=== PATIENT | male | born 1970 ===

== ENCOUNTER 2018-07-01 11:58 | Inpatient (IN) | payer SELFPAY ==
--- NOTE | 2018-07-01 12:28 | ED PDOC ---
HPI: Psych/Substance Abuse Time Seen by Provider: 07/01/18 12:25 Chief Complaint (Nursing): Psychiatric Evaluation Chief Complaint (Provider): crisis eval History Per: Patient, Family Additional Complaint(s): 47-year-old male presents for crisis evaluation. Patient has history of depression and presents today feeling suicidal. He will not verbalize any plan. He states that he has attempted suicide twice in the past. Patient admits to occasional alcohol use and use of marijuana but denies any use of any other drugs. He states he is compliant with his psychiatric meds but they are not helping him. PMD: none Past Medical History Reviewed: Historical Data, Nursing Documentation, Vital Signs Vital Signs: Last Vital Signs Temp 98 F 07/01/18 12:12 Pulse 88 07/01/18 12:12 Resp 18 07/01/18 12:12 BP 120/74 07/01/18 12:12 Pulse Ox 99 07/01/18 12:12 - Medical History PMH: Depression - Surgical History Other surgeries: neck surgery - Family History Family History: States: No Known Family Hx - Living Arrangements Living Arrangements: With Family - Social History Current smoker - smoking cessation education provided: Yes Alcohol: Social Drugs: Cannabis - Allergies Allergies/Adverse Reactions: Allergies Allergy/AdvReac Type Severity Reaction Status Date / Time No Known Allergies Allergy Verified 07/01/18 12:11 Review of Systems ROS Statement: Except As Marked, All Systems Reviewed And Found Negative Psych: Positive for: Depression, Suicidal ideation Physical Exam - Reviewed Nursing Documentation Reviewed: Yes Vital Signs Reviewed: Yes - Physical Exam Appears: Positive for: Well, Non-toxic, No Acute Distress Skin: Positive for: Normal Color. Negative for: Rash Eye Exam: Positive for: Normal appearance Cardiovascular/Chest: Positive for: Regular Rate, Rhythm Respiratory: Positive for: Normal Breath Sounds. Negative for: Respiratory Distress Extremity: Positive for: Normal ROM Neurologic/Psych: Positive for: Alert, Oriented, Mood/Affect (flat) - Laboratory Results Result Diagrams: 07/01/18 12:50 07/01/18 12:50 - ECG Interpretation Of ECG: NSR 68 bpm, no acute findings, reviewed by PA and ED attending O2 Sat by Pulse Oximetry: 99 Pulse Ox Interpretation: Normal - Other Rad CXR X-Ray: Interpreted by Me, Viewed By Me X-Ray Interpretation: no acute finding Medical Decision Making Medical Decision Makin47 y/o male here for crisis eval Plan: 1:1 Crisis eval CBC CMP [place] level UA UDS BAL EKG CXR Patient was not able to provide urine but he consented for straight cath for urine. As per crisis counselor and psychiatrist manager combination, Dr. Patton, patient does meet criteria for admission. He agrees and signed himself in. Patient is medically and psychiatrically stable for psychiatric admission. Disposition - Clinical Impression Clinical Impression: Bipolar disorder - Patient ED Disposition Is Patient to be Admitted: No - Disposition Disposition Time: 18:38 Condition: FAIR Forms: [employer] ([place]) - Pt Status Changed To: Hospital Disposition Of: Inpatient - Admit Certification Admit to Inpatient:: After my assessment, the patient will require hospitalization for at least two midnights. This is because of the severity of symptoms shown, intensity of services needed, and/or the medical risk in this patient being treated as an outpatient. - POA Present On Arrival: None Results - Lab Results Lab Results: 07/01/18 07/01/18 07/01/18 18:34 18:34 12:50 WBC RBC Hgb Hct MCV MCH MCHC RDW Plt Count MPV Neut % (Auto) Lymph % (Auto) [place] % (Auto) Eos % (Auto) Baso % (Auto) Neut # (Auto) Lymph # (Auto) [place] # (Auto) Eos # (Auto) Baso # (Auto) Sodium Potassium Chloride Carbon Dioxide Anion Gap BUN Creatinine Est GFR ( Amer) Est GFR (Non-Af Amer) Random Glucose Calcium Total Bilirubin AST ALT Alkaline Phosphatase Total Protein Albumin Globulin Albumin/Globulin Ratio Urine Color Yellow Urine Clarity Clear Urine pH 6.0 Ur Specific [place] 1.011 Urine Protein Negative Urine Glucose (UA) Neg Urine Ketones Negative Urine Blood Moderate Urine Nitrate Negative Urine Bilirubin Negative Urine Urobilinogen 0.2-1.0 Ur Leukocyte Esterase Neg Urine RBC (Auto) 7 H Urine Microscopic WBC 1 Hyaline Casts 0-2 Urine Opiates Screen Negative Urine Methadone Screen Negative Ur Barbiturates Screen Negative Ur Phencyclidine Scrn Negative Ur Amphetamines Screen Negative U Benzodiazepines Scrn Positive [place] < 0.2 L U Oth Cocaine Metabols Positive H U Cannabinoids Screen Positive H Alcohol, Quantitative 07/01/18 07/01/18 12:50 12:50 WBC 7.1 RBC 4.54 Hgb 14.9 Hct 43.1 MCV 95.1 H MCH 32.9 H MCHC 34.6 RDW 13.0 Plt Count 179 MPV 7.7 Neut % (Auto) 69.8 Lymph % (Auto) 21.7 [place] % (Auto) 7.4 Eos % (Auto) 0.8 Baso % (Auto) 0.3 Neut # (Auto) 4.9 Lymph # (Auto) 1.5 [place] # (Auto) 0.5 Eos # (Auto) 0.1 Baso # (Auto) 0.0 Sodium 140 Potassium 3.7 Chloride 108 H Carbon Dioxide 24 Anion Gap 12 BUN 12 Creatinine 1.1 Est GFR ( Amer) > 60 Est GFR (Non-Af Amer) > 60 Random Glucose 97 Calcium 9.3 Total Bilirubin 0.5 AST 24 ALT 27 Alkaline Phosphatase 47 Total Protein 6.8 Albumin 4.1 Globulin 2.7 Albumin/Globulin Ratio 1.5 Urine Color Urine Clarity Urine pH Ur Specific [place] Urine Protein Urine Glucose (UA) Urine Ketones Urine Blood Urine Nitrate Urine Bilirubin Urine Urobilinogen Ur Leukocyte Esterase Urine RBC (Auto) Urine Microscopic WBC Hyaline Casts Urine Opiates Screen Urine Methadone Screen Ur Barbiturates Screen Ur Phencyclidine Scrn Ur Amphetamines Screen U Benzodiazepines Scrn [place] U Oth Cocaine Metabols U Cannabinoids Screen Alcohol, Quantitative < 10
[2018-07-01 13:26] LABS: BASO % 0.3 % (0.0-2.0); EOS # 0.1 K/uL (0.0-0.7); EOS % 0.8 % (0.0-4.0); HEMOGLOBIN 14.9 g/dL (12.0-18.0); LYMPH # 1.5 K/uL (1.0-4.3); LYMPH % 21.7 % (20.0-40.0); MEAN CELL VOLUME 95.1 fl (80.0-94.0); MEAN CORPUSCULAR HEMOGLOBIN 32.9 pg (27.0-31.0); MEAN CORPUSCULAR HGB CONC 34.6 g/dL (33.0-37.0); MEAN PLATELET VOLUME 7.7 fl (7.2-11.7); MONO # 0.5 K/uL (0.0-0.8); MONO % 7.4 % (0.0-10.0); NEUT # 4.9 K/uL (1.8-7.0); NEUT % 69.8 % (50.0-75.0); NRBC % 0.1 % (0.0-0.0); RBC 4.54 Mil/uL (4.40-5.90); WHITE BLOOD COUNT 7.1 K/uL (4.8-10.8)
[2018-07-01 13:36] LABS: ALB/GLOB RATIO 1.5 (1.0-2.1); ALBUMIN 4.1 g/dL (3.5-5.0); ALT/SGPT 27 U/L (21-72); AST/SGOT 24 U/L (17-59); BLOOD UREA NITROGEN 12 mg/dl (9-20); CALCIUM 9.3 mg/dL (8.4-10.2); GFR NON-AFRICAN AMERICAN > 60
--- NOTE | 2018-07-01 16:21 | RAD ---
Date of service: 07/01/2018 HISTORY: clearance COMPARISON: No prior. FINDINGS: LUNGS: No active pulmonary disease. PLEURA: No significant pleural effusion identified, no pneumothorax apparent. CARDIOVASCULAR: No radiographic findings to suggest acute or significant cardiovascular disease. OSSEOUS STRUCTURES: No significant abnormalities. VISUALIZED UPPER ABDOMEN: Normal. OTHER FINDINGS: None. IMPRESSION: No active disease. Concordant results with the preliminary interpretation rendered by the emergency department physician procedure.
[2018-07-01] MEDS ORDERED: Sodium Chloride 0.9% 1,000 ML IV STA (17:42)
[2018-07-01 18:45] LABS: URINE BILIRUBIN NEGATIVE (NEGATIVE); URINE BLOOD MODERATE (NEGATIVE); URINE CLARITY CLEAR (Clear); URINE COLOR YELLOW (YELLOW); URINE GLUCOSE (UA) NEG (Normal); URINE HYALINE CAST 0-2 /hpf (0-2); URINE LEUKOCYTE ESTERASE NEG Leu/uL (Negative); URINE PROTEIN NEGATIVE (NEGATIVE); URINE UROBILINOGEN 0.2-1.0 mg/dL (0.2-1.0)
[2018-07-01 19:00] LABS: BARBITURATES, UR NEGATIVE (NEGATIVE); BENZODIAZEPINES, UR POSITIVE (NEGATIVE); OPIATES, UR NEGATIVE (NEGATIVE); PHENCYCLIDINE, UR NEGATIVE (NEGATIVE)
[2018-07-01 20:57] VITALS: O2SAT 98
[2018-07-01] MEDS ORDERED: DiphenhydrAMINE 50 mg/ml Inj IM PRN (21:29)
[2018-07-01] MEDS ORDERED: Alum-Mag Hydrox-Simethicone Susp (30 mL) PO PRN (21:29)
[2018-07-01] MEDS ORDERED: Magnesium Hydroxide Susp 30 ml UD PO PRN (21:29)
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
--- NOTE | 2018-07-02 06:29 | CARD ---
APPROVED REPORT Date of service: 07/01/2018 EKG Measurement Heart [id number] <Conclusion> Normal sinus rhythm with sinus arrhythmia Normal ECG
[2018-07-02 07:51] LABS: T4 7.38 ug/dl (5.5-11.0)
--- NOTE | 2018-07-02 16:07 | CP.PCM.CON ---
History of Present Illness - History of Present Illness History of Present Illness: Patient is too lethargic to interview at this time will see when awake and able to answer questions Past Patient History - Past Social History Alcohol: Social Drugs: Cannabis - CARDIAC Hx Cardiac Disorders: No Hx Hypertension: No - PULMONARY Hx Tuberculosis: No - NEUROLOGICAL HX Cerebrovascular Accident: No Hx Seizures: No - HEMATOLOGICAL/ONCOLOGICAL Hx Cancer: No Hx Human Immunodeficiency Virus (HIV): No - GENITOURINARY/GYNECOLOGICAL Hx Sexually Transmitted Disorders: No - PSYCHIATRIC Hx Anxiety: Yes Hx Depression: Yes Meds Allergies/Adverse Reactions: Allergies Allergy/AdvReac Type Severity Reaction Status Date / Time No Known Allergies Allergy Verified 07/01/18 12:11 - Medications Medications: Current Medications Acetaminophen (Tylenol 325mg Tab) 650 mg PO Q4 PRN PRN Reason: FOR 4-7 PAIN Al Hydrox/Mg Hydrox/Simethicone (Maalox Plus 30 Ml) 30 ml PO Q4 PRN PRN Reason: Dyspepsia Diphenhydramine HCl (Benadryl) 50 mg IM Q6 PRN PRN Reason: Extrapyramidal S/S Unable PO Diphenhydramine HCl (Benadryl) 50 mg PO Q6 PRN PRN Reason: Extrapyramidal Symptoms Last Admin: 07/02/18 15:21 Dose: 50 mg Diphenhydramine HCl (Benadryl) 50 mg PO HS PRN PRN Reason: Sleep Haloperidol (Haldol) 5 mg PO Q6 PRN PRN Reason: Agitation Haloperidol Lactate (Haldol) 5 mg IM Q6 PRN PRN Reason: Agitation [place] Carbonate ([place] Carbonate 300mg) 600 mg PO BID KARSTEN Lorazepam (Ativan) 2 mg IM Q6 PRN PRN Reason: Anxiety/Agitation,Unable PO Lorazepam (Ativan) 1 mg PO TID KARSTEN Lorazepam (Ativan) 1 mg PO Q6 PRN PRN Reason: Anxiety Magnesium Hydroxide (Milk Of Magnesia) 30 ml PO HS PRN PRN Reason: Constipation Trazodone HCl (Desyrel) 300 mg PO HS KARSTEN Results - Vital Signs Recent Vital Signs: Last Vital Signs Temp 98.6 F 07/01/18 22:00 Pulse 61 07/01/18 22:00 Resp 18 07/01/18 22:00 BP 120/81 07/01/18 22:00 Pulse Ox 98 07/01/18 20:56 - Labs Result Diagrams: 07/01/18 12:50 07/01/18 12:50 Labs: Laboratory Results - last 24 hr 07/01/18 07/01/18 07/02/18 18:34 18:34 06:35 Hemoglobin A1c Triglycerides 107 Cholesterol 153 LDL Cholesterol Direct 91 HDL Cholesterol 45 Thyroxine (T4) 7.38 TSH 3rd Generation 1.27 Urine Color Yellow Urine Clarity Clear Urine pH 6.0 Ur Specific [place] 1.011 Urine Protein Negative Urine Glucose (UA) Neg Urine Ketones Negative Urine Blood Moderate Urine Nitrate Negative Urine Bilirubin Negative Urine Urobilinogen 0.2-1.0 Ur Leukocyte Esterase Neg Urine RBC (Auto) 7 H Urine Microscopic WBC 1 Hyaline Casts 0-2 Urine Opiates Screen Negative Urine Methadone Screen Negative Ur Barbiturates Screen Negative Ur Phencyclidine Scrn Negative Ur Amphetamines Screen Negative U Benzodiazepines Scrn Positive U Oth Cocaine Metabols Positive H U Cannabinoids Screen Positive H 07/02/18 06:35 Hemoglobin A1c 5.0 Triglycerides Cholesterol LDL Cholesterol Direct HDL Cholesterol Thyroxine (T4) TSH 3rd Generation Urine Color Urine Clarity Urine pH Ur Specific [place] Urine Protein Urine Glucose (UA) Urine Ketones Urine Blood Urine Nitrate Urine Bilirubin Urine Urobilinogen Ur Leukocyte Esterase Urine RBC (Auto) Urine Microscopic WBC Hyaline Casts Urine Opiates Screen Urine Methadone Screen Ur Barbiturates Screen Ur Phencyclidine Scrn Ur Amphetamines Screen U Benzodiazepines Scrn U Oth Cocaine Metabols U Cannabinoids Screen
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
[2018-07-03 09:34] VITALS: RESP 20
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
--- NOTE | 2018-07-03 13:24 | CP.PCM.CON ---
History of Present Illness - History of Present Illness History of Present Illness: Medical consult for psychiatric admission CC: wants to go home was feeling down HPI: 47 yo Male with no PMH here for feeling down he says. Denies any physical symptoms, no cp, no sob, no n/v/d. No fevers. No chills. ROS: all other systems reviewed and are negative. PMH: none PSH: some type of neck surgery - he does not remember FH: none SH: smokes cigarets, marijuana Does cocaine social alcohol Allergies: nkda Meds: psych meds reviewed Review of Systems - Review of Systems All systems: reviewed and no additional remarkable complaints except Review of Systems: per HPI - Constitutional Constitutional: absent: As Per HPI, Anorexia, Chills, Daytime Sleepiness, Excessive Sweating, Fatigue, Fever, Frequent Falls, Headache, Increased Appetite , Lethargy, Malaise, Night Sweats, Snoring, Sleep Apnea, Weight Gain, Weight Loss, Weakness, Other Past Patient History - Past Social History Smoking Status: Current Some Days Smoker Alcohol: Social Drugs: Cannabis - CARDIAC Hx Cardiac Disorders: No Hx Hypertension: No - PULMONARY Hx Tuberculosis: No - NEUROLOGICAL HX Cerebrovascular Accident: No Hx Seizures: No - HEMATOLOGICAL/ONCOLOGICAL Hx Cancer: No Hx Human Immunodeficiency Virus (HIV): No - GENITOURINARY/GYNECOLOGICAL Hx Sexually Transmitted Disorders: No - PSYCHIATRIC Hx Anxiety: Yes Hx Depression: Yes Meds Allergies/Adverse Reactions: Allergies Allergy/AdvReac Type Severity Reaction Status Date / Time No Known Allergies Allergy Verified 07/01/18 12:11 - Medications Medications: Current Medications Acetaminophen (Tylenol 325mg Tab) 650 mg PO Q4 PRN PRN Reason: FOR 4-7 PAIN Al Hydrox/Mg Hydrox/Simethicone (Maalox Plus 30 Ml) 30 ml PO Q4 PRN PRN Reason: Dyspepsia Diphenhydramine HCl (Benadryl) 50 mg IM Q6 PRN PRN Reason: Extrapyramidal S/S Unable PO Diphenhydramine HCl (Benadryl) 50 mg PO Q6 PRN PRN Reason: Extrapyramidal Symptoms Last Admin: 07/02/18 15:21 Dose: 50 mg Diphenhydramine HCl (Benadryl) 50 mg PO HS PRN PRN Reason: Sleep Haloperidol (Haldol) 5 mg PO Q6 PRN PRN Reason: Agitation Haloperidol Lactate (Haldol) 5 mg IM Q6 PRN PRN Reason: Agitation [place] Carbonate ([place] Carbonate 300mg) 600 mg PO BID [facility] Last Admin: 07/03/18 09:41 Dose: 600 mg Lorazepam (Ativan) 2 mg IM Q6 PRN PRN Reason: Anxiety/Agitation,Unable PO Lorazepam (Ativan) 1 mg PO TID [facility] Last Admin: 07/03/18 09:41 Dose: 1 mg Lorazepam (Ativan) 1 mg PO Q6 PRN PRN Reason: Anxiety Magnesium Hydroxide (Milk Of Magnesia) 30 ml PO HS PRN PRN Reason: Constipation Trazodone HCl (Desyrel) 300 mg PO HS [facility] Last Admin: 07/02/18 21:07 Dose: 300 mg Physical Exam - Constitutional Appears: Well - Head Exam Head Exam: ATRAUMATIC, NORMAL INSPECTION, NORMOCEPHALIC - Eye Exam Eye Exam: EOMI, Normal appearance - ENT Exam ENT Exam: Mucous Membranes Moist, Normal Exam - Neck Exam Neck exam: Positive for: Normal Inspection - Respiratory Exam Respiratory Exam: Clear to Auscultation Bilateral, NORMAL BREATHING PATTERN - Cardiovascular Exam Cardiovascular Exam: REGULAR RHYTHM, +S1, +S2 - GI/Abdominal Exam GI & Abdominal Exam: Normal Bowel Sounds, Soft. absent: Organomegaly, Tenderness - Rectal Exam Rectal Exam: NORMAL INSPECTION - Extremities Exam Extremities exam: Positive for: normal inspection - Neurological Exam Neurological exam: Alert, CN II-XII Intact, Normal Gait, Oriented x3 - Psychiatric Exam Psychiatric exam: Depressed - Skin Skin Exam: Intact, Normal Color, Warm Results - Vital Signs Recent Vital Signs: Last Vital Signs Temp 97.2 F L 07/03/18 09:34 Pulse 91 H 07/03/18 09:34 Resp 20 07/03/18 09:34 BP 109/27 L 07/03/18 09:34 Pulse Ox 98 07/01/18 20:56 - Labs Result Diagrams: 07/01/18 12:50 07/01/18 12:50 Labs: Laboratory Results - last 24 hr 07/02/18 06:35 RPR Nonreactive Assessment & Plan - Assessment and Plan (Free Text) Assessment: 47 yo with no PMH here with depression. Management per psych. Will sign off consult as needed.
[2018-07-04 09:20] VITALS: BP 130/80; PULSE 91; TEMP 96.4
--- NOTE | 2018-07-04 12:42 | PCM.PYCHDC ---
Mental Status Examination - Mental Status Examination Orientation: Person, Place, Situation Memory: Intact Mood: Neutral Affect: Constricted Speech: Appropriate Attention: WNL Concentration: WNL Association: WNL Fund of Knowledge: WNL Formal Thought Process: Circumstantial Description of patient's judgement and insight: partial insight insight and poor judgment Psychotic Thoughts and Behaviors: pt denied psychotic symptoms, non elicited Suicidal Ideation: No Current Homicidal Ideation?: No Discharge Summary - Discharge Note Reason for Hospitalization: pt is 47 ys old male with previous psychiatric diagnosis of bipolar disorder and substance use since age 17 , pt currently non compliant with medications or follow up due to financial difficulties pt reportedly has been increasingly depressed as 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[place] , since the ssion 2007, he also went through a divorce and lost custody of his child, pt has been since then trying to rebuild his business but unable to do that became increasingly depressed, two weeks ago he moved to be with his father in [place], pt has been edgy irritable, poor sleep and poor appetite using cannabis, cocaine and abusing xanax on day of evaluation pt started having suicidal thoughts with plan to jump off the building , was brought to ER by family on theunit pt is disheveled , irritable , angry labile at times terfull and depressed alternating with periods of anger and irritability , verbally threatening to staff, reported continues to have passive suicidal ideation without active plan or intent on the unit presenting with pressured loud speech and limited insight requesting to be discharged denied perceptual disturbances, urine toxicology positive for cannabis and cocaine Consultations:: List each consultation separately and include: 1. Reason for request. 2. Findings. 3. Follow-up Summary of Hospital Course include:: 1. Description of specific treatment plan utilized for patients during their course of treatmen. 2. Summarize the time- course for resolution of acute symptoms and/or regressed behaviors. 3. Describe issues identified and worked on during hospitalization. 4. Describe medication utilized. 5. Describe medical problems identified and treated. 6. Reassessment of suicide risk Summary of Hospital Course: pt on admission was angry , edgy , presenting with labile affect alternating between depressed mood and affect, and episodes of anger and irritability pt was started on lithium 600 mg bid and trazodone 300mg qhs, pt showed limited insight into illness, signed 48 hour notice requesting to be discharged pt was referred to be screened for involuntary admission at [facility] FOR continuity of care and further stabilization, pt was found not to meet criteria for involuntary admission , pt declined to continue treatment , he signed request to be discharged against medical advise, pt denied any current suicidal or homicidal ideation, denied perceptual disturbances, at current mental status not danger to self or others, pt was discharged against medical advise - Final Diagnosis (DSM 5) Condition upon Discharge: FAIR DSM 5: bipolar I disorder MRE mixed severe cocaine abuse cannabis abuse Disposition: AGAINST MEDICAL ADVICE Follow-up Treatment Plan: pt at current mental status continues to be manic , labile , depressed ,high suicide risk , pt has no insight into illness, signed 48 hour notice requesting to be discharged, pt will be referred for screening for involuntary admission as he continues to need further stabilization lithium 600mg bid ,will follow up on lithium level trazodone 300mg qhs ativan 1mg tid / for xanax withdrawal , will down titrate gradually internal medicine consult' collateral information from family CBT group and supportive therapy - Antipsychotic Medications Pt discharged on 2 or more routine antipsychotic medications: No
== END 2018-07-04 12:45 | disposition left against medical advice (07) | DRG 885 ==
LOC: H.ER 11:58 → H.ERHOLD 19:03 → H.PSYCH 21:16
PROVIDERS: ADMIT Psychiatry & Neurology Psychiatry; ATTEND Psychiatry & Neurology Psychiatry
PROC: HZ52ZZZ Individual Psychotherapy for Substance Abuse Treatment, Cognitive-Behavioral (ICD-10-PCS; principal; 2018-07-01)
PROC: HZ59ZZZ Individual Psychotherapy for Substance Abuse Treatment, Supportive (ICD-10-PCS; 2018-07-01)
PROC: GZHZZZZ Group Psychotherapy (ICD-10-PCS; 2018-07-01)
DX: F31.63 Bipolar disorder, current episode mixed, severe, without psychotic features (principal); R45.851 Suicidal ideations; F13.239 Sedative, hypnotic or anxiolytic dependence with withdrawal, unspecified; Z91.19 Patient's noncompliance with other medical treatment and regimen; Z91.14 Patient's other noncompliance with medication regimen; F12.10 Cannabis abuse, uncomplicated; F14.10 Cocaine abuse, uncomplicated; F17.210 Nicotine dependence, cigarettes, uncomplicated